=== PATIENT | female | born 1985 | race Caucasian/White ===

== ENCOUNTER 2018-06-20 08:41 | Emergency (ER) | payer SELFPAY ==
[~2018-06-20] VITALS: Ht 167.6 cm; Wt 81.6 kg
[2018-06-20 08:41] VITALS: BP_SYST 141
--- NOTE | 2018-06-20 08:41 | NUR ---
BROUGHT BACK TO BED #5 AND TRIAGED. REPORT GIVEN TO SARAH
--- NOTE | 2018-06-20 08:45 | NUR ---
PATIENT COMPLAINING OF COUGH AND STUFFY NOSE. PATIENT SAID SHE HAS BEEN COUGHING BRIGHT GREEN MUCUS. PATIENT COMPLANING OF PRESSURE OF HEAD. PATIENT HAD THIS FOR A WEEK. PATIENT SAID SHE HAS SOME DISCOMFORT IN FEET FROM WALKING. PATIENT ALERT AND ORIENTED X4. PATIENT NOT COMPLAINING OF SOB, NAUSEA, OR VOMITING.
--- NOTE | 2018-06-20 08:53 | NUR ---
ER Dr. FUNK at bedside examining patient.
[2018-06-20] MEDS ORDERED: IBUPROFEN 600 MG TABLET PO ONE (09:15)
[2018-06-20 09:25] VITALS: BP_SYST 141
--- NOTE | 2018-06-20 09:25 | NUR ---
Patient given written and verbal discharge instructions and verbalizes understanding. ER MD discussed with patient the results and treatment provided. Patient in stable condition. ID arm band removed. Rx of ROBITUSSIN AND TESSALON given. Patient educated on pain management and to follow up with PMD. Pain Scale 2/10 TOLERABLE. Opportunity for questions provided and answered. Medication side effect fact sheet provided.
== END 2018-06-20 09:25 | disposition home or self-care (01) ==
LOC: SED 08:41
DX: J06.9 Acute upper respiratory infection, unspecified (principal); Z88.8 Allergy status to other drugs, medicaments and biological substances
CPT/HCPCS: 99283